=== PATIENT | female | born 1975 | race African-American/Black ===

== ENCOUNTER 2017-10-09 18:55 | Emergency (ER) | payer SELFPAY ==
[2017-10-09 19:15] VITALS: BP 110/67
--- NOTE | 2017-10-09 19:36 | UC ---
Abdominal Pain Female HPI - HPI Summary HPI Summary: Patient comes to urgent care [facility] with an acute onset of left lower quadrant pain. She was pulling wire through her machine at work when she had the sudden pain she's tried ibuprofen without relief. Patient denies fevers chills nausea vomiting no other illness exposures was not having any discomfort prior to the sudden onset - History of Current Complaint Chief Complaint: UCAbdominalPain Stated Complaint: LOW ABD PAIN Time Seen by Provider: 10/09/17 19:35 Hx Obtained From: Patient Hx Last Menstrual Period: 09/16/17 ?: No Onset/Duration: Sudden Onset, Still Present Timing: Constant Severity Initially: Moderate Severity Currently: Moderate Pain Intensity: 6 Pain Scale Used: 0-10 Numeric Location: Discrete At: LLQ Radiates: Yes Character: Tearing Aggravating Factor(s): Movement, Other: - Palpation Alleviating Factor(s): Nothing Associated Signs and Symptoms: Positive: Negative Allergies/Adverse Reactions: Allergies Allergy/AdvReac Type Severity Reaction Status Date / Time No Known Allergies Allergy Verified 10/09/17 20:32 Home Medications: Home Medications Ibuprofen TAB* [Advil TAB*] 200 mg PO ONCE PRN 10/09/17 [History Confirmed 10/09] Multivitamin [Multivitamins] 1 each PO DAILY 10/09/17 [History Confirmed ] Potassium 99 mg PO DAILY 10/09/17 [History Confirmed 10/09/17] PMH/Surg Hx/FS Hx/Imm Hx Previously Healthy: Yes - Surgical History Surgical History: Yes Surgery Procedure, Year, and Place: TUBAL LIGATION, CHOLECYSTECTOMY - Family History Known Family History: Positive: None - Social History Occupation: Employed Full-time Lives: With Family Alcohol Use: None Substance Use Type: None Smoking Status (MU): Never Smoked Tobacco Review of Systems Constitutional: Negative - The Skin: Negative Eyes: Negative ENT: Negative Respiratory: Negative Cardiovascular: Negative Gastrointestinal: Abdominal Pain - Acute onset left lower quadrant pain right actually cultures usually right Genitourinary: Negative Motor: Negative Neurovascular: Negative Musculoskeletal: Negative Neurological: Negative Psychological: Negative Is Patient Immunocompromised?: No All Other Systems Reviewed And Are Negative: Yes Physical Exam Triage Information Reviewed: Yes Appearance: Well-Appearing, Well-Nourished, Pain Distress - mild Vital Signs: Initial Vital Signs Temp 97.9 F 10/09/17 19:11 Pulse 80 10/09/17 19:11 Resp 16 10/09/17 19:11 BP 110/67 10/09/17 19:11 Pulse Ox 100 10/09/17 19:11 Vital Signs Reviewed: Yes Eye Exam: Normal Eyes: Positive: Conjunctiva Clear - 1 ENT Exam: Normal ENT: Positive: Normal ENT inspection, Hearing grossly normal - . Negative: Trismus, Muffled voice, Hoarse voice Dental Exam: Normal Neck exam: Normal Neck: Positive: Supple, Nontender Respiratory Exam: Normal Respiratory: Positive: Chest non-tender, No respiratory distress, No accessory muscle use Cardiovascular Exam: Normal Cardiovascular: Positive: RRR, Pulses Normal, Brisk Capillary Refill Abdominal Exam: Other Abdomen Description: Positive: No Organomegaly, Other: - llq pain. Negative: CVA Tenderness (R), CVA Tenderness (L) Bowel Sounds: Positive: Present Musculoskeletal Exam: Normal Musculoskeletal: Positive: Strength Intact, ROM Intact, No Edema Neurological Exam: Normal Neurological: Positive: Alert, Muscle Tone Normal Psychological Exam: Normal Skin Exam: Normal Abd Pain Female Course/Dx - Course Course Of Treatment: Patient's going to be discharged in the urgent care to go to the emergency department for further evaluation. Patient has to stay nothing by mouth. Concern is for ovarian torsion versus ovarian cysts versus muscle strain - Differential Dx/Diagnosis Provider Diagnoses: Acute left lower quadrant pain Discharge - Sign-Out/Discharge Documenting (check all that apply): Discharge - Discharge Plan Condition: Stable Disposition: HOME Discharge Disposition Comment: patient will go to the [facility] emergency Department by [employer] Patient Education Materials: Acute Abdominal Pain (ED) Referrals: [facility] [place] PH[facility]IAN REFERRAL [Outside] - 2 Weeks Additional Instructions: N discharge from the urgent care to go directly over to the emergency Department [facility] for further evaluation of her left lower quadrant pain. I have no way to do any imaging tonight to determine a diagnosis. please have nothing to eat or drink until you are seen by the doctor at the Medical Center - Billing Disposition and Condition Condition: STABLE Disposition: HOME
--- NOTE | 2017-10-11 16:37 | UC ---
- Progress Note Progress Note: urine culture no growth final no change Youj 10/11/2017 1636 Discharge - Sign-Out/Discharge Documenting (check all that apply): Discharge - Discharge Plan Condition: Stable Disposition: HOME Patient Education Materials: Acute Abdominal Pain (ED) Referrals: [facility] [place] PHYSICIAN REFERRAL [Outside] - 2 Weeks Additional Instructions: N discharge from the urgent care to go directly over to the emergency Department [facility] for further evaluation of her left lower quadrant pain. I have no way to do any imaging tonight to determine a diagnosis. please have nothing to eat or drink until you are seen by the doctor at the Medical Center - Billing Disposition and Condition Condition: STABLE Disposition: HOME
== END 2017-10-09 19:56 | disposition home or self-care (01) ==
LOC: UCEAST 18:55
DX: R10.32 Left lower quadrant pain (principal); Z32.02 Encounter for pregnancy test, result negative
CPT/HCPCS: 81003; 84702; 87086; 99202; G0463

== ENCOUNTER 2017-10-09 20:24 | Emergency (ER) | payer SELFPAY ==
[2017-10-09 22:29] LABS: Hematocrit 40 % (35-47); Hemoglobin 13.1 g/dl (12.0-16.0); Mean Corpuscular HGB Conc 33 g/dl (31-36); Mean Corpuscular Hemoglobin 26 pg (27-31); Mean Corpuscular Volume 78 fL (80-97); Mean Platelet Volume 8.6 um3 (7.4-10.4); Platelet Count 266 10^3/ul (150-450); Red Blood Count 5.09 10^6/ul (4.0-5.4); Red Cell Distribution Width 16 % (10.5-15); White Blood Count 6.5 10^3/ul (3.5-10.8)
[2017-10-09 22:47] LABS: EGFR Non-African American 78.3 (>60)
[2017-10-09 22:52] LABS: ABS Basophils 0.1 10^3/ul (0-0.2); ABS Eosinophils 0 10^3/ul (0-0.6); ABS Lymphocytes 1.8 10^3/ul (1.0-4.8); ABS Monocytes 0.6 10^3/ul (0-0.8); ABS Neutrophils 4.1 10^3/ul (1.5-7.7); ABS Nucleated RBC 0 10^3/ul; Eosinophil % 0 % (0-6); Lymphocyte % 27.9 % (25-47); Nucleated Red Blood Cells % 0.1
[2017-10-10 02:05] LABS: Urine Appearance Cloudy; Urine Blood Negative (Negative); Urine Color Yellow; Urine Ketones Negative (Negative); Urine Protein Negative (Negative); Urine Specific Gravity 1.023 (1.010-1.030); Urine Urobilinogen Negative (Negative)
[2017-10-10] MEDS ORDERED: Bisacodyl SUPP* 10 MG SUPP PR ONE (03:36)
[2017-10-10] MEDS ORDERED: Magnesium CITRATE* 300 ML BTL PO ONE (03:36)
--- NOTE | 2017-10-10 03:45 | ED ---
John Valencia Tecjoon, scribed for Asa Daugherty MD on 10/10/17 at 0006 . Abdominal Pain/Female - HPI Summary HPI Summary: This patient is a 42 year old female presenting to [facility] with a chief complaint of LLQ abdominal pain since approx. 9 hours ago. Patient states she was seen at [facility] and was informed to come to ED for further evalution. Patient states she was at work, pulling something, when she felt a sharp pain in her lower abd. The pain is rated 9/10 in severity. Symptoms aggravated by ambulation. Symptoms alleviated by nothing. The patient treated the sx with ibuprofen. - History of Current Complaint Chief Complaint: EDAbdPain Stated Complaint: LOW ABDOMINAL PAIM Time Seen by Provider: 10/09/17 23:58 Hx Obtained From: Patient Hx Last Menstrual Period: 09/16/17 Onset/Duration: Sudden Onset, Still Present Timing: Constant Severity Currently: Severe Pain Intensity: 9 Pain Scale Used: 0-10 Numeric Location: Discrete At: LLQ Radiates: No Character: Sharp Aggravating Factor(s): Other: - walking Alleviating Factor(s): Nothing Allergies/Adverse Reactions: Allergies Allergy/AdvReac Type Severity Reaction Status Date / Time No Known Allergies Allergy Verified 10/09/17 20:32 PMH/Surg Hx/FS Hx/Imm Hx Previously Healthy: Yes Opthamlomology History: Denies: Hx Legally Blind EENT History: Denies: Hx Deafness - Surgical History Surgery Procedure, Year, and Place: TUBAL LIGATION, CHOLECYSTECTOMY Infectious Disease History: No Infectious Disease History: Denies: Traveled Outside the [place] in Last 30 Days - Family History Known Family History: Negative: Hypertension - Social History Occupation: Employed Full-time Alcohol Use: None Hx Substance Use: No Substance Use Type: Reports: None Hx Tobacco Use: No Smoking Status (MU): Never Smoked Tobacco Review of Systems Negative: Fever Positive: Abdominal Pain All Other Systems Reviewed And Are Negative: Yes Physical Exam - Summary Physical Exam Summary: VITAL SIGNS: Reviewed. GENERAL: Patient is a well-developed and nourished female who is lying comfortable in the stretcher. Patient is not in any acute respiratory distress. HEAD AND FACE: No signs of trauma. No ecchymosis, hematomas or skull depressions. No sinus tenderness. EYES: PERRLA, EOMI x 2, No injected conjunctiva, no nystagmus. EARS: Hearing grossly intact. Ear canals and tympanic membranes are within normal limits. MOUTH: Oropharynx within normal limits. NECK: Supple, trachea is midline, no adenopathy, no JVD, no carotid bruit, no c- spine tenderness, neck with full ROM. CHEST: Symmetric, no tenderness at palpation LUNGS: Clear to auscultation bilaterally. No wheezing or crackles. CVS: Regular rate and rhythm, S1 and S2 present, no murmurs or gallops appreciated. ABDOMEN: LLQ tenderness, mild hyperactive bowel sounds EXTREMITIES: FROM in all major joints, no edema, no cyanosis or clubbing. NEURO: Alert and oriented x 3. No acute neurological deficits. Speech is normal and follows commands. SKIN: Dry and warm Triage Information Reviewed: Yes Vital Signs On Initial Exam: Initial Vitals Temp Pulse Resp BP Pulse Ox 97.5 F 73 16 120/65 99 10/09/17 20:29 10/09/17 20:29 10/09/17 20:29 10/09/17 20:29 10/09/17 20:29 Vital Signs Reviewed: Yes Diagnostics - Vital Signs Vital Signs Temp Pulse Resp BP Pulse Ox 10/09/17 20:29 97.5 F 73 16 120/65 99 - Laboratory Lab Results: Lab Results 10/09/17 10/09/17 Range/Units 22:13 22:13 WBC 6.5 (3.5-10.8) 10^3/ul RBC 5.09 (4.0-5.4) 10^6/ul Hgb 13.1 (12.0-16.0) g/dl Hct 40 (35-47) % MCV 78 L (80-97) fL MCH 26 L (27-31) pg MCHC 33 (31-36) g/dl RDW 16 H (10.5-15) % Plt Count 266 (150-450) 10^3/ul MPV 8.6 (7.4-10.4) um3 Neut % (Auto) 62.2 (38-83) % Lymph % (Auto) 27.9 (25-47) % [place] % (Auto) 9.1 H (0-7) % Eos % (Auto) 0 (0-6) % Baso % (Auto) 0.8 (0-2) % Absolute Neuts (auto) 4.1 (1.5-7.7) 10^3/ul Absolute Lymphs (auto) 1.8 (1.0-4.8) 10^3/ul Absolute Monos (auto) 0.6 (0-0.8) 10^3/ul Absolute Eos (auto) 0 (0-0.6) 10^3/ul Absolute Basos (auto) 0.1 (0-0.2) 10^3/ul Absolute Nucleated RBC 0 10^3/ul Nucleated RBC % 0.1 Giant Platelets Present Anisocytosis 1+ Sodium 136 L (139-145) mmol/L Potassium 3.8 (3.5-5.0) mmol/L Chloride 102 (101-111) mmol/L Carbon Dioxide 27 (22-32) mmol/L Anion Gap 7 (2-11) mmol/L BUN 8 (6-24) mg/dL Creatinine 0.81 (0.51-0.95) mg/dL Est GFR ( Amer) 100.7 (>60) Est GFR (Non-Af Amer) 78.3 (>60) BUN/Creatinine Ratio 9.9 (8-20) Glucose 102 H (70-100) mg/dL Calcium 9.7 (8.6-10.3) mg/dL Total Bilirubin 0.90 (0.2-1.0) mg/dL AST 19 (13-39) U/L ALT 13 (7-52) U/L Alkaline Phosphatase 56 (34-104) U/L C-Reactive Protein 1.52 (< 5.00) mg/L Total Protein 8.3 (6.4-8.9) g/dL Albumin 4.5 (3.2-5.2) g/dL Globulin 3.8 (2-4) g/dL Albumin/Globulin Ratio 1.2 (1-3) Lipase 51 (11.0-82.0) U/L Beta HCG, Quant < 0.60 mIU/mL Result Diagrams: 10/09/17 22:13 10/09/17 22:13 Lab Statement: Any lab studies that have been ordered have been reviewed, and results considered in the medical decision making process. - Radiology Abd XR Xray Interpretation: Positive (See Comments) - Abd XR reveals, per radiologist, IMPRESSION: STOOL. ED physician has reviewed this radiology report. Radiology Interpretation Completed By: Radiologist - CT CT Abd CT Interpretation: Positive (See Comments) - CT Abd reveals, per radiologist, IMPRESSION: Mild hepatomegaly. Small hiatal hernia. ED physician has reviewed this radiology report. CT Interpretation Completed By: Radiologist Abdominal Pain Fem Course/Dx - Course Course Of Treatment: This patient is a 42 year old female presenting to [facility] with a chief complaint of LLQ abdominal pain since approx. 9 hours ago. Abd XR reveals, per radiologist, IMPRESSION: STOOL. ED physician has reviewed this radiology report. CT Abd reveals, per radiologist, IMPRESSION: Mild hepatomegaly. Small hiatal hernia. ED physician has reviewed this radiology report. Bloodwork Obtained. Urinalysis Obtained. Test results with no significant abnormalities. In the ED course the patient was given Magnesium Citrate, Dulcolax. Patient will be discharged with a dx of constipation. Patient is advised to follow up with PCP in 3 days. The patient is agreeable with this plan. - Diagnoses Provider Diagnoses: Constipation Discharge - Sign-Out/Discharge Documenting (check all that apply): Discharge - Discharge Plan Condition: Stable Disposition: HOME Patient Education Materials: Constipation (ED) Referrals: No Primary Care Phys,NOPCP [Primary Care Provider] - 3 Days [facility] [place] PHYSICIAN REFERRAL [Outside] - 3 Days Additional Instructions: Return to the ED for any new or worsening symptoms. The documentation as recorded by the John campbell Tecjoon accurately reflects the service I personally performed and the decisions made by Willow caceres Abdul, MD.
[2017-10-10 03:55] VITALS: BP 101/49
--- NOTE | 2017-10-10 07:30 | RAD ---
INDICATION: Abdominal pain. COMPARISON: There are no prior studies available for comparison. TECHNIQUE: Supine and upright views of the abdomen were obtained. FINDINGS: The small bowel and colon appear nondistended. No free intraperitoneal air is seen. There are several surgical clips present in the right upper quadrant most consistent with a prior cholecystectomy. IMPRESSION: NO EVIDENCE FOR ACUTE FINDING.
--- NOTE | 2017-10-10 07:45 | RAD ---
INDICATION: Left lower abdominal pain. COMPARISON: There are no prior studies available for comparison. TECHNIQUE: A CT scan of the abdomen and pelvis was performed without intravenous or oral contrast. Contiguous axial sections were obtained from the lung bases through the symphysis pubis. Images were reconstructed in the coronal and sagittal planes. FINDINGS: The lung bases are clear. No pleural effusion is present. The liver is mildly enlarged. No significant focal hepatic abnormality is seen on this noncontrast limited study. The patient is status post cholecystectomy. The spleen and pancreas appear to be within normal limits. The adrenal glands and kidneys are normal in size. No renal calculi or hydronephrosis is seen. The aorta is normal in caliber without significant calcific plaque. No significant enlarged retroperitoneal lymph nodes are seen. The stomach, small and large bowel appear nondistended. The appendix is within normal limits. There is a moderate amount retained stool. There is no evidence for diverticulitis or colitis. There is a small periumbilical hernia containing fat. The uterus is anteverted in position and markedly enlarged measuring 15.5 x 10.5 x 9.0 cm in size. There is a small amount of free intraperitoneal fluid present dependently within the pelvis. No free intraperitoneal air is seen. No significant focal osseous abnormality is seen. IMPRESSION: 1. NO EVIDENCE FOR ACUTE FINDING OR CAUSE FOR THE PATIENT'S ABDOMINAL PAIN IS SEEN. 2. MILD HEPATOMEGALY. 3. STATUS POST CHOLECYSTECTOMY. 4. MARKEDLY ENLARGED UTERUS WHICH IS NONSPECIFIC ALTHOUGH LIKELY SECONDARY TO FIBROIDS. RECOMMEND CLINICAL CORRELATION AND CONSIDER A FOLLOW-UP PELVIC ULTRASOUND FOR FURTHER EVALUATION.
== END 2017-10-10 03:55 | disposition home or self-care (01) ==
LOC: ED 20:24
DX: K59.00 Constipation, unspecified (principal); R10.32 Left lower quadrant pain
CPT/HCPCS: 36415; 74019; 74176; 80053; 81003; 81015; 83690; 84702; 85025; 86140; 99283; A9270-GY